=== PATIENT | male | born 1965 | race Two or more races ===

== ENCOUNTER 2021-04-12 | Emergency (ER) | payer BC, OTHER ==
[~2021-04-12] VITALS: Ht 175.3 cm; Wt 75.3 kg
[2021-04-12 02:29] VITALS: BP 144/84
[2021-04-12] MEDS ORDERED: IBUPROFEN 600 MG TABLET ONE (03:28)
[2021-04-12] MEDS ORDERED: IBUPROFEN 600 MG TABLET PO ONE (03:30)
== END 2021-04-12 04:14 | disposition home or self-care (01) ==
LOC: ER 00:05
DX: M54.2 Cervicalgia (principal); G89.29 Other chronic pain; F15.129 Other stimulant abuse with intoxication, unspecified; I10 Essential (primary) hypertension; F17.200 Nicotine dependence, unspecified, uncomplicated; Z98.890 Other specified postprocedural states; Z59.00 Homelessness unspecified

== ENCOUNTER 2021-04-27 13:30 | Emergency (ER) | payer BC, OTHER ==
[~2021-04-27] VITALS: Ht 175.3 cm; Wt 75.3 kg
--- NOTE | 2021-04-27 13:34 | NUR ---
[id number] for medical clearance. in custody.c/o shooting neck pain for months
[2021-04-27 14:34] LABS: BASOPHILS # (AUTO) 0.1 K/uL (0.0-0.2); BASOPHILS % (AUTO) 1.4 % (0.0-2.0); HEMATOCRIT 39 % (39-51); HEMOGLOBIN 12.9 g/dL (13.5-17.5); LYMPHOCYTES # (AUTO) 0.9 K/uL (0.8-4.8); LYMPHOCYTES % (AUTO) 18.2 % (20.0-44.0); MEAN CORPUSCULAR HGB CONC 33 g/dl (31.0-36.0); MEAN CORPUSCULAR VOLUME 89 fL (80-96); MONOCYTES # (AUTO) 0.4 K/uL (0.1-1.30); MONOCYTES % (AUTO) 8.9 % (2.0-12.0); NEUTROPHILS # (AUTO) 3.1 K/uL (1.8-8.9); NEUTROPHILS % (AUTO) 65.5 % (43.0-81.0); PLATELET COUNT (AUTO) 251 K/uL (150-450); RED BLOOD CELL COUNT(AUTO) 4.38 MIL/uL (4.5-6.0); WHITE BLOOD COUNT (AUTO) 4.8 K/uL (4.3-11.0)
[2021-04-27 14:54] LABS: CALCIUM, SERUM 8.9 mg/dL (8.5-10.1); CARBON DIOXIDE 28 mmol/L (21-32); CHLORIDE 106 mmol/L (98-107); CREATININE 0.8 mg/dL (0.6-1.3); GLUCOSE 113 mg/dL (74-106); POTASSIUM 3.7 mmol/L (3.5-5.1); SODIUM SERUM 141 mmol/L (136-145); UREA NITROGEN, BLOOD 17 mg/dL (7-18)
[2021-04-27] MEDS ORDERED: IBUPROFEN 600 MG TABLET ONE (16:31)
[2021-04-27 16:37] VITALS: BP 142/83
--- NOTE | 2021-04-27 16:37 | NUR ---
Patient discharged to home in stable condition. Written and verbal after care instructions given. Patient verbalizes understanding of instruction.
[2021-04-27] MEDS ORDERED: IBUPROFEN 600 MG TABLET PO ONE (17:00)
== END 2021-04-27 16:38 ==
LOC: ER 13:40
DX: R07.89 Other chest pain (principal); I10 Essential (primary) hypertension; F17.200 Nicotine dependence, unspecified, uncomplicated; Z59.00 Homelessness unspecified
CPT/HCPCS: 36415; 71045-TC; 80048-TC; 84484-TC; 85025-TC